=== PATIENT | male | born 1995 | race Hispanic/Latino ===

== ENCOUNTER 2017-02-03 16:22 | Emergency (ER) | payer OTHER ==
[~2017-02-03] VITALS: Ht 172.7 cm; Wt 77.6 kg
[2017-02-03 18:18] LABS: ADD MIUA? NO; BILIRUBIN NEGATIVE; BLOOD NEGATIVE; COLOR YELLOW ((YELLOW)); GLUCOSE (STRIP) NEGATIVE; KETONES NEGATIVE; LEUKOCYTES NEGATIVE; NITRITE NEGATIVE; PROTEIN (STRIP) NEGATIVE; SPECIFIC GRAVITY 1.013 (1.000-1.030); UROBILINOGEN 0.2 MG/DL (0.2-1.0)
[2017-02-03] MEDS ORDERED: MOTRIN800 MG PO (18:35)
[2017-02-03] MEDS ORDERED: FIORICET 50-301 EACH PO (18:35)
[2017-02-03] MEDS ORDERED: VALIUM5 MG PO (18:35)
[2017-02-03 18:53] VITALS: BP 133/63
== END 2017-02-03 18:57 | disposition home or self-care (01) ==
LOC: EME 16:22
PROVIDERS: Physician Assistant
DX: M62.838 Other muscle spasm (principal); G44.209 Tension-type headache, unspecified, not intractable; R42 Dizziness and giddiness
CPT/HCPCS: 81003; 99281; 99283

== ENCOUNTER 2017-02-06 21:30 | Emergency (ER) | payer OTHER ==
[~2017-02-06] VITALS: Ht 172.7 cm; Wt 78.6 kg
[~2017-02-06 21:30] MED LIST: FIORICET 50-301 EACH PO; MOTRIN800 MG PO; VALIUM5 MG PO
[2017-02-06 22:48] LABS: BASOPHIL COUNT 0.1 K/uL (0-0.1); EOSINOPHIL (%) 2.5 % (0-5); EOSINOPHIL COUNT 0.2 K/uL (0-0.3); IMMATURE GRANULOCYTE (%) 0.2 % (0.0-0.7); INSTRUMENT ABS NEUTROPHIL CT 4.5 K/uL; LYMPHOCYTE COUNT 2.8 K/uL (1.0-2.8); MCH 28.7 PG (29.0-34.0); MCHC 34.1 G/DL (30.0-36.0); MCV 84.2 FL (86-99); MEAN PLAT.VOLUME 9.1 uM^3 (9.0-12.4); MONOCYTE (%) 6.8 % (3-12); MONOCYTE COUNT 0.6 K/uL (0-0.8); NEUTROPHIL (%) 55.3 % (45-76); NEUTROPHIL COUNT 4.5 K/uL (1.8-6.4); PLATELET COUNT 274 K/uL (156-360); RBC DIS.WIDTH-CV 12.7 % (11.8-14.6); RBC DIS.WIDTH-SD 38.5 % (39-53); RED BLOOD COUNT 4.87 M/uL (4.00-5.50); WHITE BLOOD COUNT 8.1 K/uL (4.1-10.2)
[2017-02-06 22:54] LABS: CHLORIDE 109 mEq/L (99-109); POTASSIUM 3.5 mEq/L (3.7-5.4); SODIUM 143 mEq/L (136-147)
[2017-02-06 22:56] LABS: GLUCOSE 91 mg/dL (70-99)
[2017-02-06 22:57] LABS: ANION GAP 10 MEQ/L (2-14)
[2017-02-06 23:00] LABS: GFR ESTIMATE (CALCULATED) > 59 mL/min/
[2017-02-06 23:01] LABS: UREA NITROGEN (BUN) 10 mg/dL (9-23)
[2017-02-07] MEDS ORDERED: FIORICET,ESG1 TABLET PO (01:13)
[2017-02-07 01:33] VITALS: BP 149/103
== END 2017-02-07 01:43 | disposition home or self-care (01) ==
LOC: EXP 21:30 → EME 21:30 → EXP 02-07 01:43
PROVIDERS: Emergency Medicine
DX: R51 Headache (principal); S16.1XXA Strain of muscle, fascia and tendon at neck level, initial encounter
CPT/HCPCS: 70450; 80048; 85025; 99281; 99285; J0780; J1200; J7030

== ENCOUNTER 2017-08-01 05:59 | Emergency (ER) | payer OTHER ==
[~2017-08-01] VITALS: Ht 172.7 cm; Wt 76.0 kg
[~2017-08-01 05:59] MED LIST changes: +FIORICET,ESG1 TABLET PO
[2017-08-01 07:52] LABS: APPEARANCE CLEAR ((CLEAR)); BILIRUBIN NEGATIVE; BLOOD NEGATIVE; COLOR YELLOW ((YELLOW)); GLUCOSE (STRIP) NEGATIVE; KETONES NEGATIVE; LEUKOCYTES NEGATIVE; NITRITE NEGATIVE; PROTEIN (STRIP) NEGATIVE; SPECIFIC GRAVITY 1.016 (1.000-1.030); UCUL ADDED? NO; UROBILINOGEN 0.2 MG/DL (0.2-1.0)
[2017-08-01] MEDS ORDERED: PERCOCET 5/31 TABLET PO (08:00)
[2017-08-01] MEDS ORDERED: FLEXERIL10 MG PO (08:00)
[2017-08-01 08:42] VITALS: BP 125/61
== END 2017-08-01 08:42 | disposition home or self-care (01) ==
LOC: EME 05:59
PROVIDERS: Emergency Medicine
DX: M54.5 Low back pain (principal)
CPT/HCPCS: 72100; 81003; 99281; 99284; J1885